=== PATIENT | male | born 1975 | race Caucasian/White ===

== ENCOUNTER → 2022-10-04 13:01 | Outpatient (CLI) | payer OTHER, SELFPAY ==
[2022-10-04 13:20] LABS: Basophils # 0.1 K/mm3 (0-0.2); Basophils % 0.9 % (0.1-2.0); Eosinophils # 0.3 K/mm3 (0.0-0.4); Eosinophils % 3.7 % (0.1-12.0); Hematocrit 49.3 % (42.0-52.0); Hemoglobin 16.2 g/dL (14.1-18.0); Lymphocytes # 3.2 K/mm3 (0.7-4.5); Mean Corpuscular HGB Conc 32.9 g/dL (31.8-35.4); Mean Corpuscular Volume 88.2 fl (80-94); Monocytes # 0.5 K/mm3 (0.1-1.0); Monocytes % 5.8 % (1.7-9.3); Neutrophils # 4.2 K/mm3 (1.8-7.8); Neutrophils % 50.6 % (37.0-80.0); Platelet Count 252 K/mm3 (142-424); Red Blood Count 5.58 M/mm3 (4.60-6.20); Red Cell Distribution Width 13.1 % (11.5-17.5); White Blood Count 8.3 K/mm3 (4.8-10.8)
[2022-10-04 13:55] LABS: Hemoglobin A1C 5.4 % (4.0-6.0)
[2022-10-04 14:14] LABS: Alanine Aminotransferase 48 U/L (12-78); Alkaline Phosphatase 83 U/L (38-126); Anion Gap 12.1 mEq/L (5-15); Aspartate Amino Transferase 31 U/L (17-59); Bilirubin,Indirect 0.4 mg/dL (0.0-0.9); Bilirubin,Total 0.4 mg/dl (0.2-1.3); Bilirubin,Unconjugated 0.6 mg/dL (0.0-1.1); Blood Urea Nitrogen 43 mg/dl (9-20); Calcium 9.5 mg/dl (8.4-10.2); Carbon Dioxide 28 mmol/L (22.0-30.0); Chloride 106 mmol/L (98-107); Chol/HDL Ratio 7.3 (1-3.5); Cholesterol 211 mg/dl (140-200); Estimated Glomerular Filt Rate 28 ml/min (>60); GFR (African American) 34 ML/MIN (>60); Glucose 92 mg/dl (74-100); HDL Cholesterol 29 mg/dl (40-60); Potassium 5.1 mmoL/L (3.5-5.1); Sodium 141 mmol/L (136-145); Total Protein,Serum 7.7 g/dl (6.3-8.2); Triglycerides 294 mg/dl (30-150); VLDL Cholesterol 59 mg/dL (0-40)
[2022-10-04 14:30] LABS: Free T4 (Free Thyroxine) 1.06 ng/dl (0.78-2.19)
[2022-10-04 14:31] LABS: Direct LDL Cholesterol 106.02 mg/dL (100-129)
[2022-10-04 14:44] LABS: Thyroid Stimulating Hormone 0.15 uIU/mL (0.465-4.68)
== END ==
PROVIDERS: PCP Nurse Practitioner Family; Visit Provider Internal Medicine
DX: R06.00 Dyspnea, unspecified (principal); R07.89 Other chest pain; R42 Dizziness and giddiness; I10 Essential (primary) hypertension; R60.0 Localized edema; R40.0 Somnolence; R06.83 Snoring; R94.31 Abnormal electrocardiogram [ECG] [EKG]; E66.9 Obesity, unspecified; Z68.37 Body mass index [BMI] 37.0-37.9, adult
CPT/HCPCS: 36415; 80048; 80061; 80076; 83036; 83735; 84439; 84443; 85025

== ENCOUNTER → 2022-10-24 07:06 | Outpatient (CLI) | payer OTHER, SELFPAY ==
--- NOTE | 2022-10-24 07:13 | NM_ITS ---
APPROVED REPORT Exam: Nuclear Stress Test Indication: fatigue..tobacco use..soa Patient Location: Outpatient Stress Tech: Lexie Brandt [place] Tech:Evelina GillilandJUAREZ RT(R)(N) Ht: 5 ft 9 in Wt: 253 lbs HR: 72 bpm BP: 133/99 mmHg BSA: 2.28 m2 Rhythm: NSR TID: 1.19 BMI: 37.3 History: fatigue..tobacco use..soa Procedure: Patient exercised on Idris protocol 6 minutes and sec, resting heart rate 72 bpm, resting blood pressure 133/99 mmHg, with exercise maximum heart rate achived was 160 bpm which is 91 % of the maximum predicted heart rate and blood pressure was 183/81 mmHg. Test was stopped due to soa. Patient denied any complaint of chest pain. Patient has poor exercise capacity, achieved 7.0 METs of workload on treadmill, the blood pressure response to exercise was normal. Cardiac Stress and Resting SPECT Images: Cardiac Stress and Resting SPECT images were obtained using technetium 99m Myoview 30.9 mCi stress and 10.50 mCi at rest. Resting and stress imaging in supine position demonstrate a medium-sized, mild, fixed perfusion defect in the inferior LV wall. This is no longer visualized with prone stress imaging. Findings are suggestive of diaphragmatic attenuation. Gated imaging demonstrates normal global and regional LV systolic function. LVEF is calculated at 58%. Conclusion: Diaphragmatic attenuation is present. No definite fixed or reversible perfusion defects. Gated imaging demonstrates normal global and regional LV systolic function. LVEF is calculated at 58%. Electronically signed by : Arianne Callahan, 10/26/2022 16:29:30
--- NOTE | 2022-10-24 08:59 | CA_ITS ---
APPROVED REPORT EXAM: Comprehensive 2D, Doppler, and color-flow Echocardiogram Fire Chief'S Aide: Nelida Chavarria CRT Ht: 5 ft 9 in Wt: 255lbs BSA: 2.29 BP: 104/65 mmHg Indications: Abnormal ECG, Chest Pain, Shortness of Breath, Obesity, Peripheral Edema, Hyperlipidemia, Hypertension/HDD 2D Dimensions Aortic Root 2.10 cm M: 3.1 - 3.7 LA Volume 17.40 mL LA Volume Index 7.60 mL/m2 (M/F) 16-34 M-Mode Dimensions RVDd 3.86 cm (0.9-2.6) LA Diam 3.24 cm (1.9-4.0) LVDd 4.51 cm (3.5-5.7) Ao Diam 4.57 cm (2.0-3.7) LVDs 2.69 cm (3.5-5.7) IVSd 1.74 cm (0.6-1.1) PWd 0.53 cm (0.6-1.1) EF (Teich) 71.20% FS 40.40% EDV (Teich) 92.90 mL TAPSE 1.90 (<1.7) ESV (Teich) 26.80 mL LV Diastology E Decel Time 187.00 (160-240 msec) E/A Ratio 0.7 MED E' 10.20 (< 7 cm/sec) MED A' 12.70 cm/s E'/MED E' Ratio 6.76 (>14) LAT E' 19.40 (<10 cm/sec) LAT A' 27.60 cm/s E/LAT E' Ratio 3.56 (>14) Aortic Valve AO Peak GR. 5.90 mmHg Mitral Valve MV E Max Mihir. 69.00 (40-130 cm/s) MV A Velocity 95.00 (40-130 cm/s) E/A Ratio 0.73 MV Decel. Time 187.00 (160-240 ms) MV PHT 55.00 ms Pulmonary Valve PV Peak Velocity 92.00 (50-150 cm/s) Tricuspid Valve TR P. Velocity 153.00 cm/s Left Ventricle The left ventricle is normal size. The left ventricular systolic function is normal. The left ventricular ejection fraction is within the normal range. There is normal left ventricular wall thickness. There is normal LV segmental wall motion. The left ventricular diastolic function is normal. LVEF is 55%. Right Ventricle The right ventricle is normal size. The right ventricular systolic function is normal. Atria The left atrium size is normal. The right atrium size is normal. There is no Doppler evidence of interatrial shunt. Aortic Valve The aortic valve opens well. There is no aortic valvular stenosis. No aortic regurgitation is present. Mitral Valve The mitral valve is normal in structure. No evidence of mitral valve stenosis. Trace mitral regurgitation. Tricuspid Valve The tricuspid valve leaflets are thin and pliable. Trace tricuspid regurgitation. There is insufficient TR jet to estimate RVSP. Pulmonic Valve The pulmonary valve is normal in structure. Trace pulmonic regurgitation. Great Vessels The aortic root is normal in size. The ascending aorta is normal in size. IVC is normal in size and collapses >50% with inspiration. Pericardium There is no pericardial effusion. Other Information Study Quality: Adequate Conclusion Normal biventricular systolic function. No significant valvular disease. Electronically signed by : Arianne Callahan, 10/24/2022 22:30:49
--- NOTE | 2022-10-24 11:15 | CA_ITS ---
APPROVED REPORT Exam: Exercise Treadmill Technologist: Lexie Brandt Ht: 5 ft 9 in Wt: 255 lbs BSA: 2.29 m2 HR: 75 bpm BP: 133/99 mmHg Rhythm: NSR Indications: Shortness of Air Medical History Medications: Omeprazole,,,,, Gabapentin,,,,, Buspirone,,,,, ClonAZEPAM,,,,, Hydrocodone-Acetaminophen,,,,, Stress Test Details Test: Idris HR Resting HR: 72 bpm Max Heart Rate (APMHR): 175 bpm Max HR Achieved: 160 bpm Target HR (85% APMHR): 149 bpm % of APMHR: 91 Recovery HR: 97 bpm HR response to stress: Normal HR response to stress BP Resting BP: 133.0/99.0 mmHg Max BP: 183.0/81.0 mmHg Recovery BP: 155.0/84.0 mmHg BP response to stress: Normal blood pressure response to stress. ECG Resting ECG: Normal sinus rhythm Stress ECG: No change Arrhythmia: PACs Recovery ECG: No change Recovery Arrhythmia: None Clinical Exercise duration: 06:00 min Highest Stage Achieved: Exercise capacity: 7.0 METs Overall Exercise Capacity for Age: Poor Stress ECG Conclusion Patient walked 6:00 on Idris Protocol. Test stopped due to dyspnea, fatigue. The patient was able to exerise for a total of 6m, 0s. He achieved a total of 7 METs. He has a poor exercise capacity compared to age and sex matched peers. He has normal HR and BP response to exercise. Symptoms: Dyspnea, No chest pain. Arrhythmias/Ectopy: occasional PAC ST-T Changes: Normal ST response to exercise. Conclusion: Poor exercise capacity. Normal GXT. Myoview images reported separately. Test Summary REST . . . . . . . Sitting REST . . . . . . . Standing REST 03:32 0.0 0.0 72 . 133/ 99 . . Stage 1 01:00 10.0 1.7 97 . . . . Stage 1 02:00 10.0 1.7 107 . . . . Stage 1 03:00 10.0 1.7 116 . 168/ 86 . . Stage 2 01:00 12.0 2.5 132 . . . . Stage 2 . . . . . . . Myoview Injected Stage 2 02:00 12.0 2.5 147 . . . . Stage 2 03:00 12.0 2.5 160 . . . Stop exercise at 06:00 RECOVERY 01:00 0.0 0.0 139 . . . . RECOVERY 02:00 0.0 0.0 114 . . . . RECOVERY 03:00 0.0 0.0 103 . 160/ 94 . . RECOVERY 04:00 0.0 0.0 98 . 183/ 81 . . RECOVERY 05:00 0.0 0.0 95 . 183/ 81 . . RECOVERY 06:00 0.0 0.0 91 . 166/ 68 . . RECOVERY 07:00 0.0 0.0 97 . 155/ 84 . . RECOVERY 07:18 0.0 0.0 96 . 155/ 84 . . Electronically signed by : Arianne Callahan, 10/26/2022 16:26:15
== END ==
LOC: RAD 07:07
PROVIDERS: Visit Provider Internal Medicine
DX: R06.00 Dyspnea, unspecified (principal); R07.89 Other chest pain; R42 Dizziness and giddiness; I10 Essential (primary) hypertension; R60.0 Localized edema; R94.31 Abnormal electrocardiogram [ECG] [EKG]; R06.83 Snoring; R40.0 Somnolence
CPT/HCPCS: 78452; 93017; 93306; A9502